=== PATIENT | male | born 1950 | race Caucasian/White ===

== ENCOUNTER → 2021-05-10 | Outpatient (CLI) | payer MEDICARE, OTHER ==
[~2021-05-10] MED LIST: NORCO 5-325 TA1 EACH PO
== END ==
LOC: MRI 15:32
DX: G93.9 Disorder of brain, unspecified (principal)
CPT/HCPCS: 36415; 70552; 82565; A9577

== ENCOUNTER → 2021-05-10 | Outpatient (CLI) | payer MEDICARE, OTHER | LOC: MRI 13:14 → KOH-I 13:14 | DX: I69.322 Dysarthria following cerebral infarction (principal); R41.3 Other amnesia; R47.89 Other speech disturbances; I65.23 Occlusion and stenosis of bilateral carotid arteries | CPT/HCPCS: 70551; 93880 ==

== ENCOUNTER → 2021-10-20 | Outpatient (CLI) | payer MEDICARE, OTHER ==
[2021-10-20 15:13] LABS: BUN/CREATININE RATIO 9 (0-10)
== END ==
LOC: MRI 14:33
PROVIDERS: Internal Medicine Hematology & Oncology
DX: C71.9 Malignant neoplasm of brain, unspecified (principal); G93.89 Other specified disorders of brain
CPT/HCPCS: 36415; 70553; 80053; A9577

== ENCOUNTER 2021-11-01 01:58 | Emergency (ER) | payer MEDICARE, OTHER ==
[2021-11-01 02:34] LABS: HEMOGLOBIN 13.3 gm/dl (14.0-17.5); RED BLOOD COUNT 4.63 M/UL (4.20-5.50); WHITE BLOOD COUNT 11.1 K/UL (4.5-11.0)
[2021-11-01 02:54] LABS: BUN/CREATININE RATIO 17 (0-10)
[2021-11-01] MEDS ORDERED: OMNICEF 300 MG300 MG PO (03:57)
== END 2021-11-01 04:33 | disposition home or self-care (01) ==
LOC: ER1 01:58
PROVIDERS: Family Medicine
DX: R82.90 Unspecified abnormal findings in urine (principal); Z51.81 Encounter for therapeutic drug level monitoring
CPT/HCPCS: 70450; 71045; 80053; 81001; 83605; 83735; 84100; 85025; 85610; 87040; 87077; 87086; 87186; 93005; 96361; 96374; 99284; J0696